=== PATIENT | male | born 1990 | race Caucasian/White ===

== ENCOUNTER 2018-12-15 21:06 | Emergency (ER) | payer SELFPAY ==
[~2018-12-15] VITALS: Ht 170.2 cm; Wt 89.8 kg
[2018-12-15 21:19] VITALS: BP 121/89
--- NOTE | 2018-12-15 21:19 | NUR ---
ED Nurse Note: pt walked in c/o sorethroat, nasal congestion, and generalized body ache, pt reports it happened about two days ago. no fever in triage. pt AA&ox4, gcs=15, skin warm and dry, resp even and unlabored on RA, will cont monitor.
[2018-12-15] MEDS ORDERED: IBUPROFEN600 MG ORAL (21:34)
[2018-12-15] MEDS ORDERED: ZITHROMAX250 MG ORAL (21:34)
--- NOTE | 2018-12-15 21:34 | Emergency Room Report ---
History of Present Illness General Chief Complaint: Sore Throat Source: Patient Present Illness HPI Is a 28-year-old male with no past medical history. He presents with chief complaint of sore throat. Onset yesterday. Worse with eating and drinking. No drooling. Also with cough and congestion. Also with chest tightness. Fever yesterday. Pain is 8 out of 10. Allergies: Coded Allergies: No Known Allergies (Unverified , 12/15/18) Patient History Past Medical History: none, see triage record, old chart reviewed Past Surgical History: none Pertinent Family History: none Social History: Denies: smoking Immunizations: other Reviewed Nursing Documentation: PMH: Agreed; PSxH: Agreed Nursing Documentation-PMH Past Medical History: No Stated History Review of Systems Constitutional: Reports: fever Eye: Denies: eye pain, blurred vision ENT: Reports: nose congestion, throat pain; Denies: ear pain, throat swelling Respiratory: Reports: cough; Denies: shortness of breath Cardiovascular: Denies: chest pain, palpitations Gastrointestinal: Denies: abdominal pain, diarrhea, nausea, vomiting Musculoskeletal: Denies: back pain, joint pain Skin: Denies: rash Neurological: Denies: headache, numbness Endocrine: Denies: increased thirst, increased urine Hematologic/Lymphatic: Denies: easy bruising All Other Systems: negative except mentioned in HPI Physical Exam Vital Signs Date Time Temp Pulse Resp B/P (MAP) Pulse Ox O2 Delivery O2 Flow Rate FiO2 12/15/18 21:19 98.4 72 18 121/89 (100) 94 Room Air Vitals normal Sp02 EP Interpretation: reviewed, normal General Appearance: well appearing, no apparent distress, alert Head: normocephalic, atraumatic Eyes: bilateral eye PERRL, bilateral eye EOMI ENT: hearing grossly normal, pharyngeal erythema Neck: full range of motion, supple, no meningismus Respiratory: chest non-tender, lungs clear, normal breath sounds Cardiovascular #1: regular rate, rhythm, no murmur Gastrointestinal: normal bowel sounds, non tender, no mass, no organomegaly, no bruit, non-distended Musculoskeletal: back normal, gait/station normal, normal range of motion Psychiatric: mood/affect normal Medical Decision Making Diagnostic Impression: Primary Impression: Pharyngitis, acute Qualified Codes: J02.9 - Acute pharyngitis, unspecified ER Course Patient with pharyngitis. Most likely viral in nature. No evidence of peritonsillar abscess, retropharyngeal abscess or Nadeem angina. Will discharge home. Last Vital Signs Date Time Temp Pulse Resp B/P (MAP) Pulse Ox O2 Delivery O2 Flow Rate FiO2 12/15/18 21:19 98.4 72 18 121/89 (100) 94 Room Air Status: unchanged Disposition: HOME, SELF-CARE Condition: Stable Scripts Azithromycin* (ZITHROMAX*) 250 Mg Tablet 250 MG ORAL DAILY, #6 TAB 0 Refills Take two tables once daily for 1 day, then one tablet once daily for 4 days. Prov: Ruddy Cunha MD 12/15/18 Ibuprofen* (MOTRIN*) 600 Mg Tablet 600 MG ORAL THREE TIMES A DAY, #30 TAB 0 Refills Prov: Ruddy Cunha MD 12/15/18 Additional Instructions: Increase fluids. Salt water gargle. Follow-up with your doctor in 7 days. May take [id number] Sudafed for congestion. Return if worse. Ruddy Cunha MD Dec 15, 2018 21:34
--- NOTE | 2018-12-15 21:37 | NUR ---
ED Nurse Note: pt cleared to be d/c per ERMD, pt discharge and aftercare instruction provided w/ prescription, pt education done via discussion and handout, pt advised to follow up with pcp or return to ed if changes in condition, pt verbalized understanding and agrees with plan, vss, ambulatory w/ steady gait, left w/ all belongings.
[2018-12-15 21:38] VITALS: BP 121/89
== END 2018-12-15 21:50 | disposition home or self-care (01) ==
LOC: EMR 21:50
DX: J02.9 Acute pharyngitis, unspecified (principal)
CPT/HCPCS: 99282